=== PATIENT | female | born 1980 | race Asian ===

== ENCOUNTER 2020-08-08 15:04 | Observation (INO) | payer OTHER ==
[2020-08-08] MEDS ORDERED: ACETAMINOPHEN 1000 MG/100 ML VIAL (NON FORMULARY) IVPB ONE (15:15)
[2020-08-08] MEDS ORDERED: SODIUM CHLORIDE 1,000 ML IV STA ×2 (15:15→16:46)
[2020-08-08] MEDS ORDERED: ONDANSETRON 4 MG/2 ML VIAL IVPUSH ONE (15:15)
[2020-08-08 15:19] VITALS: TEMP 98; BMI 18.6
[2020-08-08] MEDS ORDERED: ONDANSETRON 4 MG/2 ML VIAL ONE (15:28)
[2020-08-08] MEDS ORDERED: ACETAMINOPHEN INJECTION 100 ML IVPB ONE (15:28)
[2020-08-08 16:08] LABS: BASO % 0.9 % (0-2.0); EOS % 0.1 % (0-4.5); HEMATOCRIT 42.9 % (32.4-45.2); HEMOGLOBIN 14.3 GM/dl (10.7-15.3); LYMPH % 7.9 % (8-40); MCH 26.7 pg (25.7-33.7); MCHC 33.2 g/dl (32.0-36.0); MEAN CELL VOLUME 80.2 fl (80-96); MEAN PLT VOLUME 9.8 fl (7.5-11.1); MONO % 6.4 % (3.8-10.2); NEUT % 84.7 % (42.8-82.8); PLATELET COUNT 155 K/MM3 (134-434); RBC 5.35 M/mm3 (3.60-5.2); RDW 13.3 % (11.6-15.6); WHITE BLOOD COUNT 4.5 K/mm3 (4.0-10.8)
[2020-08-08 16:16] LABS: ALBUMIN 4.3 g/dl (3.4-5.0); ALK PHOS 62 U/L (45-117); ANION GAP 11 MMOL/L (8-16); BILIRUBIN,TOTAL 0.5 mg/dl (0.2-1); CALCIUM 9.2 mg/dl (8.5-10); CHLORIDE 104 mmol/L (98-107); CO2 21 mmol/L (21-32); CREATININE 0.6 mg/dl (0.55-1.3); GLUCOSE,RANDOM 110 mg/dl (74-106); LDH 104 U/L (84-246); POTASSIUM 3.8 mmol/L (3.5-5.1); SGOT/AST 26 U/L (15-37); SGPT/ALT 26 U/L (13-61); SODIUM 136 mmol/L (136-145); TOT PROT 7.3 g/dl (6.4-8.2)
[2020-08-08 16:20] LABS: INR 1.2 (0.82-1.09); PROTHROMBIN TIME (PATIENT) 13.3 SEC (10.2-13.0)
[2020-08-08 18:38] LABS: EPITHELIAL CELLS FEW /hpf
[2020-08-09] MEDS ORDERED: ACETAMINOPHEN 500 MG TABLET (FP) PO PRN (00:33)
[2020-08-09] MEDS ORDERED: LACTATED RINGERS SOLUTION 1,000 ML IV SCH (00:45)
[2020-08-09 06:59] VITALS: BP 113/75; PULSE 65
[2020-08-09] MEDS ORDERED: ZINC SULFATE 220 MG CAPSULE (FP) PO SCH (10:00)
[2020-08-09] MEDS ORDERED: ASCORBIC ACID 500 MG TABLET (FP) PO SCH (10:00)
[2020-08-09] MEDS ORDERED: CHOLECALCIFEROL (VIT D3) 1,000 UNIT (25 MCG) TABLET PO SCH (10:00)
== END 2020-08-09 10:54 | disposition home or self-care (01) ==
LOC: FER 15:04 → FM/S 18:34 → FER 08-09 10:53
PROVIDERS: ADMIT Internal Medicine; ATTEND Internal Medicine
PROC: 3E0337Z Introduction of Electrolytic and Water Balance Substance into Peripheral Vein, Percutaneous Approach (ICD-10-PCS; principal; 2020-08-08)
PROC: 3E033NZ Introduction of Analgesics, Hypnotics, Sedatives into Peripheral Vein, Percutaneous Approach (ICD-10-PCS; 2020-08-08)
PROC: 3E033GC Introduction of Other Therapeutic Substance into Peripheral Vein, Percutaneous Approach (ICD-10-PCS; 2020-08-08)
DX: U07.1 COVID-19 (principal); R79.89 Other specified abnormal findings of blood chemistry; R55 Syncope and collapse; M54.9 Dorsalgia, unspecified; R23.1 Pallor; M79.10 Myalgia, unspecified site
CPT/HCPCS: 36415; 71045-TC-FY; 80053; 81003; 81015; 82550; 82728; 83615; 83880; 84443; 84484; 84703; 85025; 85379; 85610; 85730; 93005; 96361; 96374; 96375; 99285-25; C9803; G0378; J0131; U0003; U0005

== ENCOUNTER 2020-10-24 09:00 | Emergency (ER) | payer OTHER ==
[2020-10-24 09:09] VITALS: BMI 18.1
[2020-10-24] MEDS ORDERED: SODIUM CHLORIDE 1,000 ML IV STA (09:25)
[2020-10-24] MEDS ORDERED: ONDANSETRON 4 MG/2 ML VIAL IVPB ONE (09:25)
[2020-10-24] MEDS ORDERED: FAMOTIDINE 20 MG/50 ML IVPB 20 MG/50 ML MG IVPB ONE ×2 (09:25→10:03)
[2020-10-24] MEDS ORDERED: ACETAMINOPHEN 1000 MG/100 ML VIAL (NON FORMULARY) IVPB ONE (09:25)
[2020-10-24] MEDS ORDERED: ONDANSETRON 4 MG/2 ML VIAL ONE (09:27)
[2020-10-24] MEDS ORDERED: ACETAMINOPHEN INJECTION 100 ML IVPB ONE (09:27)
[2020-10-24 09:53] LABS: HEMATOCRIT 41.9 % (32.4-45.2); HEMOGLOBIN 13.8 GM/dl (10.7-15.3); MCH 26.3 pg (25.7-33.7); MCHC 32.8 g/dl (32.0-36.0); MEAN PLT VOLUME 11.2 fl (7.5-11.1); PLATELET COUNT 145 10^3/uL (134-434); RBC 5.24 M/mm3 (3.60-5.2); RDW 13.9 % (11.6-15.6); WHITE BLOOD COUNT 7.1 K/mm3 (4.0-10.8)
[2020-10-24 10:00] LABS: ALBUMIN 4.5 g/dl (3.4-5.0); BILIRUBIN,TOTAL 0.7 mg/dl (0.2-1); CALCIUM 9.4 mg/dl (8.5-10); CREATININE 0.7 mg/dl (0.55-1.3); TOT PROT 7.6 g/dl (6.4-8.2)
[2020-10-24 10:01] LABS: HCG,QUALITATIVE URINE NEGATIVE
[2020-10-24 10:15] LABS: EPITHELIAL CELLS MODERATE /hpf
[2020-10-24 10:49] LABS: PLATELET ESTIMATE ADEQUATE
[2020-10-24 12:22] VITALS: BP 109/58; PULSE 76; TEMP 97.8
== END 2020-10-24 12:20 | disposition home or self-care (01) ==
LOC: FER 09:00
PROC: 3E0333Z Introduction of Anti-inflammatory into Peripheral Vein, Percutaneous Approach (ICD-10-PCS; principal; 2020-10-24)
PROC: 3E033GC Introduction of Other Therapeutic Substance into Peripheral Vein, Percutaneous Approach (ICD-10-PCS; 2020-10-24)
PROC: 3E033GC Introduction of Other Therapeutic Substance into Peripheral Vein, Percutaneous Approach (ICD-10-PCS; 2020-10-24)
PROC: 3E0337Z Introduction of Electrolytic and Water Balance Substance into Peripheral Vein, Percutaneous Approach (ICD-10-PCS; 2020-10-24)
DX: R11.2 Nausea with vomiting, unspecified (principal); R10.9 Unspecified abdominal pain
CPT/HCPCS: 36415; 80053; 81003; 81015; 83690; 84703; 85025; 87086; 99284-25; J0131

== ENCOUNTER 2022-04-11 01:31 | Emergency (ER) | payer OTHER ==
[2022-04-11] MEDS ORDERED: ONDANSETRON 4 MG/2 ML VIAL IVPB ONE (01:36)
[2022-04-11] MEDS ORDERED: FAMOTIDINE 20 MG/50 ML IVPB 20 MG/50 ML MG IVPB ONE ×2 (01:36→01:46)
[2022-04-11] MEDS ORDERED: SODIUM CHLORIDE 1,000 ML IV ONE (01:36)
[2022-04-11] MEDS ORDERED: ONDANSETRON 4 MG/2 ML VIAL ONE (01:46)
[2022-04-11 01:56] VITALS: BP 128/78; PULSE 78; RESP 17; TEMP 97.5; BMI 18.6
[2022-04-11 02:17] LABS: HEMATOCRIT 43.5 % (32.4-45.2); HEMOGLOBIN 14.4 GM/dL (10.7-15.3); MCH 25.9 pg (25.7-33.7); MCHC 33.2 g/dl (32.0-36.0); MEAN CELL VOLUME 78.2 fl (80-96); MEAN PLT VOLUME 9.8 fl (7.5-11.1); PLATELET COUNT 191 10^3/uL (134-434); RBC 5.56 M/mm3 (3.60-5.2); RDW 14.2 % (11.6-15.6); WHITE BLOOD COUNT 14.7 K/mm3 (4.0-10.0)
[2022-04-11 02:38] LABS: CHLORIDE 105 mmol/L (98-107); SODIUM 141 mmol/L (136-145)
[2022-04-11 02:40] LABS: CALCIUM 9.8 mg/dL (8.5-10.1)
[2022-04-11 02:41] LABS: ALBUMIN 4.4 g/dl (3.4-5.0); ANION GAP 10 MMOL/L (8-16); BLOOD UREA NITROGEN 16.7 mg/dL (7-18); CO2 25 mmol/L (21-32); GLUCOSE,RANDOM 131 mg/dL (74-106)
[2022-04-11 02:44] LABS: CREATININE 0.7 mg/dL (0.55-1.3); SGOT/AST 25 U/L (15-37); SGPT/ALT 41 U/L (13-61)
[2022-04-11 02:46] LABS: BILIRUBIN,TOTAL 0.4 mg/dL (0.2-1); TOT PROT 7.9 g/dl (6.4-8.2)
[2022-04-11 02:47] LABS: ALK PHOS 74 U/L (45-117)
== END 2022-04-11 03:10 | disposition home or self-care (01) ==
LOC: FER 01:31
PROC: 3E033GC Introduction of Other Therapeutic Substance into Peripheral Vein, Percutaneous Approach (ICD-10-PCS; principal; 2022-04-11)
DX: R10.10 Upper abdominal pain, unspecified (principal); R11.2 Nausea with vomiting, unspecified
CPT/HCPCS: 36415; 80053; 81025; 82550; 84484; 85027; 93005; 99284-25

== ENCOUNTER 2023-03-16 15:04 | Emergency (ER) | payer OTHER ==
[2023-03-16] MEDS ORDERED: ACETAMINOPHEN 1000 MG/100 ML BAG IVPB ONE (15:50)
[2023-03-16] MEDS ORDERED: SODIUM CHLORIDE 0.9% 1000 ML INFUS.BAG IV ONE (15:51)
[2023-03-16] MEDS ORDERED: ONDANSETRON 4 MG/2 ML VIAL IVPUSH ONE (15:51)
[2023-03-16 15:59] VITALS: BP 122/66; PULSE 60; RESP 18; TEMP 97.5; BMI 18.7
[2023-03-16] MEDS ORDERED: ONDANSETRON 4 MG/2 ML VIAL ONE (16:03)
[2023-03-16] MEDS ORDERED: ACETAMINOPHEN INJECTION 100 ML IVPB ONE (16:04)
[2023-03-16 16:29] LABS: HEMATOCRIT 41.9 % (32.4-45.2); HEMOGLOBIN 13.8 G/dL (10.7-15.3); MCHC 32.9 g/dl (32.0-36.0); MEAN CELL VOLUME 78.9 fl (80-96); MEAN PLT VOLUME 9.6 fl (7.5-11.1); PLATELET COUNT 152.5 10^3/uL (134-434); RBC 5.31 10^6/uL (3.60-5.2); RDW 15.6 % (11.6-15.6); WHITE BLOOD COUNT 5.5 10^3/uL (4.0-10.8)
[2023-03-16 16:42] LABS: PLATELET ESTIMATE ADEQUATE
[2023-03-16 16:49] LABS: ALBUMIN 4.2 g/dl (3.4-5.0); BILIRUBIN,TOTAL 0.4 mg/dl (0.2-1); CALCIUM 9.2 mg/dl (8.5-10.1); CREATININE 0.6 mg/dl (0.6-1.3); POTASSIUM 4.1 mmol/L (3.5-5.1); TOT PROT 6.7 g/dl (6.4-8.2)
== END 2023-03-16 18:17 | disposition home or self-care (01) ==
LOC: FER 15:04
PROC: 3E033NZ Introduction of Analgesics, Hypnotics, Sedatives into Peripheral Vein, Percutaneous Approach (ICD-10-PCS; principal; 2023-03-16)
PROC: 3E033GC Introduction of Other Therapeutic Substance into Peripheral Vein, Percutaneous Approach (ICD-10-PCS; 2023-03-16)
DX: U07.1 COVID-19 (principal); R11.2 Nausea with vomiting, unspecified; M79.10 Myalgia, unspecified site; J02.9 Acute pharyngitis, unspecified; R50.9 Fever, unspecified
CPT/HCPCS: 0241U-QW; 36415; 80053; 85027; 99284-25